=== PATIENT | female | born 1975 | race Caucasian/White ===

== ENCOUNTER 2017-10-13 17:06 | Emergency (ER) | payer MEDICAID ==
[~2017-10-13] VITALS: Ht 157.5 cm; Wt 68.0 kg
[~2017-10-13 17:06] MED LIST: DENIES
[2017-10-13 17:10] VITALS: Ht 157.5 cm; Wt 68.0 kg
--- NOTE | 2017-10-13 23:10 | ERD ---
ER Documentation Chief Complaint Chief Complaint Complains of back x 2 days HPI 42-year-old female presenting with a chief complaint of back pain. Describes foul-smelling urine, hematuria, and dysuria. Foul smell described as metal. Denies trauma, fever, chills, nausea, vomiting, abdominal pain. Has taken some of her aunts hydrochlorothiazide without relief. Increase in urination. Denies loss of bowel or bladder control, urinary retention, saddle paresthesia. Patient has no other complaints and describes no other associated manifestations. Nursing notes have been reviewed and are consistent with history given. ROS All systems reviewed and are negative except as per history of present illness. Medications Home Meds Reported Medications [Denies] No Conflict Check 10/26/10 Allergies Allergies: Coded Allergies: No Known Allergy (Verified , 01/08/15) PMhx/Soc Medical and Surgical Hx: pt denies Medical Hx, pt denies Surgical Hx History of Surgery: No Anesthesia Reaction: No Hx Neurological Disorder: No Hx Respiratory Disorders: No Hx Cardiac Disorders: No Hx Psychiatric Problems: No Hx Miscellaneous Medical Probl: No Hx Alcohol Use: No Hx Substance Use: No Hx Tobacco Use: No Smoking Status: Never smoker Physical Exam Vitals Vital Signs Date Time Temp Pulse Resp B/P Pulse Ox O2 Delivery O2 Flow Rate FiO2 10/13/17 17:10 99.3 112 20 108/65 100 Physical Exam Const: Well-appearing 42-year-old female in no acute distress Head: Atraumatic Eyes: Normal Conjunctiva. Ophthalmoscope exam unremarkable. PERRLA, EOMI, no nystagmus. ENT: Normal External Ears, Nose and Mouth. Neck: Full range of motion..~ No meningismus. Resp: Clear to auscultation bilaterally Cardio: Regular rate and rhythm, no murmurs Abd: Soft, non tender, non distended. Normal bowel sounds Skin: No petechiae or rashes Back: No midline or flank tenderness Ext: No cyanosis, or edema Neur: Awake and alert Psych: Normal Mood and Affect Results 24 hrs Laboratory Tests Test 10/13/17 23:29 Bedside Urine pH (LAB) 5.5 Bedside Urine Protein (LAB) Negative Bedside Urine Glucose (UA) Negative Bedside Urine Ketones (LAB) Negative Bedside Urine Blood 2+ Bedside Urine Nitrite (LAB) Negative Bedside Urine Leukocyte Esterase (L Negative Procedures/MDM Well-appearing 42-year-old female presenting with a chief complaint of back pain. No fevers. Describes dysuria, hematuria and foul-smelling urine described as metal smelling. Physical exam was unremarkable for CVA tenderness. Pain is in lower back. No history of trauma. dip was negative. Urine dip revealed the following: Hematuria. At this time I have little suspicion for pyelonephritis, cauda equina, other SBI or neurovascular compromise. Most likely diagnosis is back strain versus sprain, versus back pain of unknown etiology. I have spoke with the patient regarding their condition and future management. They have verbally responded that they understand their status and treatment plan. The patients vitals are stable, and their current condition is appropriate for discharge. The patient will be given discharge instructions with return precautions. Departure Diagnosis: Primary Impression: Back pain Back pain location: low back pain Chronicity: chronic Back pain laterality : right Sciatica presence: without sciatica Qualified Code: M54.5 - Chronic right-sided low back pain without sciatica Condition: Stable Additional Instructions: Follow up with your PCP within the next 1-3 days for a more thorough evaluation and a possible referral to a specialist. Return the the emergency department immediately if symptoms worsen or change. If you have any questions regarding medications, ask your pharmacist or us before you leave. If any adverse reactions occur while taking your medications, discontinue the treatment and return to the emergency department immediately. Take your medications as directed, and complete the entire course of treatment. MEG SUMMERS PA-C Oct 13, 2017 23:10
[2017-10-13 23:29] LABS: URINE BLOOD (Dip) POC 2+ (NEGATIVE)
== END 2017-10-14 01:34 | disposition home or self-care (01) ==
LOC: FTE 17:06
DX: M54.5 Low back pain (principal)
CPT/HCPCS: 81003; Z7502; 99282